=== PATIENT | male | born 2000 | race African-American/Black ===

== ENCOUNTER 2018-10-31 00:18 | Emergency (ER) | payer OTHER ==
[~2018-10-31] VITALS: Ht 180.3 cm; Wt 104.3 kg
[2018-10-31 01:00] VITALS: BP 136/75
[2018-10-31] MEDS ORDERED: AMOX875T PO (01:06)
--- NOTE | 2018-10-31 01:58 | PHYS DOC ---
Past Medical History Past Medical History: No Pertinent History Additional Past Surgical Histo: tubes in right ear as a child 4yrs old. Alcohol Use: None Drug Use: None Adult General Chief Complaint Chief Complaint: EARACHE/EAR PAIN HPI HPI Patient is a 18 year old m with chief, right ear pain feels full. Feel swollen onset 4 hours ago no fever no other symptoms Allergies Allergies Allergies Coded Allergies Type Severity Reaction Last Updated Verified No Known Drug Allergies 10/31/18 No Physical Exam Physical Exam Constitutional: Well developed, well nourished, no acute distress, non-toxic appearance. [] HENT: Normocephalic, atraumatic, bilateral external ears normal, oropharynx moist, no oral exudates, nose normal. []Right TM erythematous with middle ear effusion noted some blunting of the light reflex no definite bulging Eyes: PERRLA, EOMI, conjunctiva normal, no discharge. [] Neck: Normal range of motion, no tenderness, supple, no stridor. [] Pulmonary: Normal respiratory effort no increased work of breathing no obvious chest wall trauma Neurologic: Alert and oriented X 3, normal motor function, normal sensory function, no focal deficits noted. [] Psychologic: Affect normal, judgement normal, mood normal. [] Current Patient Data Vital Signs Vital Signs Date Time Temp Pulse Resp B/P (MAP) Pulse Ox O2 Delivery O2 Flow Rate FiO2 10/31/18 01:00 98.0 84 16 136/75 (95) 99 Room Air 98.0 EKG EKG [] Radiology/Procedures Radiology/Procedures [] Course & Med Decision Making Course & Med Decision Making Pertinent Labs and Imaging studies reviewed. (See chart for details) [] Dragon Disclaimer Dragon Disclaimer This electronic medical record was generated, in whole or in part, using a voice recognition dictation system. Departure Departure Impression: Primary Impression: Otitis media Disposition: 01 HOME, SELF-CARE Condition: STABLE Patient Instructions: Otitis Media, Adult, [id number] Scripts Amoxicillin (AMOXICILLIN) 875 Mg Tablet 1 TAB PO BID, #14 TAB Prov: YUDI GOODSON MD 10/31/18 YUDI GOODSON MD Oct 31, 2018 01:58
== END 2018-10-31 01:14 | disposition home or self-care (01) ==
LOC: ER 00:18
DX: H66.91 Otitis media, unspecified, right ear (principal)
CPT/HCPCS: 99283